=== PATIENT | female | born 1950 | race Caucasian/White ===

== ENCOUNTER → 2017-11-08 | Outpatient (CLI) | payer OTHER ==
--- NOTE | 2017-11-08 10:17 | XR ---
Cervical spine HISTORY: Neck pain 5 views of the cervical spine Carotid artery calcifications are suspected. Lateral extension of endplate disc complex causes forami nal encroachment on the right at C4-5, C5-6 and C6-7 on the left at same levels, views of the left fo ramina are limited however. Cervical vertebral bodies show preserved height. Minimal retrolisthesis g rade 1 C4-5 and C5-6. There is loss of disc height at the intervertebral levels at C3-4, C4-5, C5-6 a nd C6-7 with associated spondylosis. Prevertebral soft tissues are normal. Bone mineralization mildly reduced. Suspect facet arthropathy, patient is edentulous. IMPRESSION: Degenerative disc disease, multilevel foraminal encroachment, facet arthropathy. Addition al findings above.
--- NOTE | 2017-11-08 12:48 | BD ---
EXAMINATION TYPE: Axial Bone Density DATE OF EXAM: 11/08/2017 COMPARISON: NONE CLINICAL HISTORY: 66 YR OLD FEMALE....ICD-10 CODE: Z78.0 ASYMPTOMATIC MENOPAUSAL STATE Height: 63.4 Weight: 153 FRAX RISK QUESTIONS: Family History (Parent hip fracture): YES, HER MOTHER Current Tobacco Use: YES, ABOUT 1/2 PAC DAILY RISK FACTORS HISTORY OF: Surgery to RT HIP REPLACEMENT When: AT AGE 65 Family History of Osteoporosis: YES, HER MOTHER WITH BROKEN HIP Active: YES Diet low in dairy products/other sources of calcium: NO Postmenopausal woman: YES, HYST AT 26 YRS OLD, HORMONAL MENOPAUSE AT 46 YRS OLD MEDICATIONS: Additional Medications: LYRICA AND LUNESTA Additional History: HX OF COLON AND ENDOMETRIAL CANCER, TOTAL RT HIP EXAM MEASUREMENTS: Bone mineral densitometry was performed using the Cree System. Bone mineral density as measured about the Lumbar spine is: ----- L1-L4(G/cm2): 1.106 T Score Values are as follows: ----- L1: -0.3 ----- L2: -1.3 ----- L3: -0.4 ----- L4: -0.7 ----- L1-L4: -0.6 Bone mineral density FIRST BONE DENSITY AT MPH Bone mineral density about the L hip (g/cm2): 0.887 T Score values are as follows: -----L Neck: -1.1 -----L Total: -1.0 Bone mineral density FIRST BONE DENSITY SCAN AT MPH FRAX%S: THERE IS A 15.1% CHANCE OF A MAJOR OSTEOPOROTIC FX AND A 1.3% FOR A HIP FX.....PROBABILIT Y OF FX IN 10 YRS TIME IMPRESSION: Osteopenia NOTE: T-SCORE=SD OF THE YOUNG ADULT MEAN.
--- NOTE | 2017-11-09 09:52 | MM ---
Reason for exam: screening (asymptomatic). Last mammogram was performed 5 years and 9 months ago. History: Patient is postmenopausal, has history of endometrial cancer at age 25, and has history of colon cancer at age 25. Physical Findings: A clinical breast exam by your physician is recommended on an annual basis and results should be correlated with mammographic findings. MG Screening Mammo w CAD Bilateral CC and MLO view(s) were taken. Prior study comparison: February 11, 2012, bilateral digital screening mammo w/CAD. June 24, 2008, bilateral digital screening mammogram. The breast tissue is heterogeneously dense. This may lower the sensitivity of mammography. There is no discrete abnormality. No significant changes when compared with prior studies. ASSESSMENT: Negative, BI-RAD 1 RECOMMENDATION: Routine screening mammogram of both breasts in 1 year.
== END | disposition home or self-care (01) ==
LOC: RADMAMWWP 08:08
PROVIDERS: ATTEND Family Medicine
DX: Z12.31 Encounter for screening mammogram for malignant neoplasm of breast (principal); M50.30 Other cervical disc degeneration, unspecified cervical region; M43.12 Spondylolisthesis, cervical region; M47.812 Spondylosis without myelopathy or radiculopathy, cervical region; M46.92 Unspecified inflammatory spondylopathy, cervical region; M85.80 Other specified disorders of bone density and structure, unspecified site; Z78.0 Asymptomatic menopausal state
CPT/HCPCS: 72050; 77067; 77080

== ENCOUNTER 2018-03-29 15:50 | Emergency (ER) | payer OTHER, MEDICARE ==
[2018-03-29] MEDS ORDERED: SODIUM CHLORIDE 0.9% 1,000 ML IV STA (16:25)
--- NOTE | 2018-03-29 16:28 | ED ---
Abdominal Pain HPI - General Chief Complaint: Abdominal Pain Stated Complaint: Abd Pain Time Seen by Provider: 03/29/18 16:10 Source: patient, RN notes reviewed Mode of arrival: ambulatory Limitations: no limitations - History of Present Illness Initial Comments: 67-year-old female resents emergency department tingling or right lower quadrant abdominal pain. Patient states she's had diarrhea for last 2 days. Improved today states that she did have some nausea no vomiting. Patient reports no fever no chills no chest pain or shortness of breath no back pain. She states the bumps in the [place] makes symptoms worse and also when she walks. Patient states she is unsure she's had a prior appendectomy she does admit to prior cholecystectomy bowel resection and hysterectomy. - Related Data Home Medications Medication Instructions Recorded Confirmed Eszopiclone [Lunesta] 1 mg PO HS PRN 08/09/14 08/16/14 Pregabalin [Lyrica] 100 mg PO BID 08/09/14 08/16/14 Varenicline [Chantix Continuing 1 mg PO HS 08/12/14 08/16/14 Pack] Previous Rx's Medication Instructions Recorded HYDROcodone/APAP 7.5-325MG [[place] 1 - 2 each PO Q6HR PRN #90 tab 08/17/14 7.5-325] Warfarin [Coumadin] 2.5 mg PO DAILY #27 tab 08/17/14 Allergies Allergy/AdvReac Type Severity Reaction Status Date / Time No Known Allergies Allergy Verified 03/29/18 15:59 Review of Systems ROS Statement: Those systems with pertinent positive or pertinent negative responses have been documented in the HPI. ROS Other: All systems not noted in ROS Statement are negative. Past Medical History Past Medical History: Cancer, Fibromyalgia Additional Past Medical History / Comment(s): [id number]-HIAWBTE OF BOWEL History of Any Multi-Drug Resistant Organisms: None Reported Past Surgical History: Bowel Resection, Cholecystectomy, Hysterectomy, Joint Replacement, Orthopedic Surgery Additional Past Surgical History / Comment(s): right hip replacement, LEFT SHOULDER Past Anesthesia/Blood Transfusion Reactions: No Reported Reaction Past Psychological History: No Psychological Hx Reported Smoking Status: Current every day smoker Past Alcohol Use History: None Reported Past Drug Use History: None Reported - Past Family History Mother Family Medical History: Cancer Additional Family Medical History / Comment(s): mother- uterine CA Daughter(s) Family Medical History: Cancer General Exam Limitations: no limitations General appearance: alert, in no apparent distress Head exam: Present: atraumatic, normocephalic, normal inspection Respiratory exam: Present: normal lung sounds bilaterally. Absent: respiratory distress, wheezes, rales, rhonchi, stridor Cardiovascular Exam: Present: regular rate, normal rhythm, normal heart sounds. Absent: systolic murmur, diastolic murmur, rubs, gallop, clicks GI/Abdominal exam: Present: soft, tenderness (Moderate right lower quadrant), normal bowel sounds. Absent: distended, guarding, rebound, rigid Back exam: Absent: CVA tenderness (R), CVA tenderness (L) Skin exam: Present: warm, dry, intact, normal color. Absent: rash Course Vital Signs 03/29/18 15:57 Temperature 97.9 F Pulse Rate 71 Respiratory 18 Rate Blood Pressure 112/54 O2 Sat by Pulse 97 Oximetry Medical Decision Making - Medical Decision Making 67-year-old female presented for right lower quadrant abdominal pain. CT, lab urinalysis was obtained. There evidence of inflammation in the cecum, appendix concerning for inflammatory bowel disease versus acute appendicitis. Case discussed with Dr. Greenberg patient will be admitted kept nothing by mouth, antibiotics and repeat labs in the morning. - Lab Data Result diagrams: 03/29/18 16:45 03/29/18 16:45 Lab Results 03/29/18 03/29/18 03/29/18 Range/Units 16:45 16:45 16:45 WBC 10.5 (3.8-10.6) k/uL RBC 4.10 (3.80-5.40) m/uL Hgb 12.0 (11.4-16.0) gm/dL Hct 37.2 (34.0-46.0) % MCV 90.6 (80.0-100.0) fL MCH 29.1 (25.0-35.0) pg MCHC 32.2 (31.0-37.0) g/dL RDW 13.1 (11.5-15.5) % Plt Count 375 (150-450) k/uL Neutrophils % 67 % Lymphocytes % 23 % Monocytes % 5 % Eosinophils % 3 % Basophils % 0 % Neutrophils # 7.1 (1.3-7.7) k/uL Lymphocytes # 2.5 (1.0-4.8) k/uL Monocytes # 0.5 (0-1.0) k/uL Eosinophils # 0.3 (0-0.7) k/uL Basophils # 0.0 (0-0.2) k/uL PT (9.0-12.0) sec INR (<1.2) APTT (22.0-30.0) sec Sodium 141 (137-145) mmol/L Potassium 4.3 (3.5-5.1) mmol/L Chloride 109 H (98-107) mmol/L Carbon Dioxide 23 (22-30) mmol/L Anion Gap 9 mmol/L BUN 17 (7-17) mg/dL Creatinine 1.04 (0.52-1.04) mg/dL Est GFR (CKD-EPI)AfAm 65 (>60 ml/min/1.73 sqM) Est GFR (CKD-EPI)NonAf 56 (>60 ml/min/1.73 sqM) Glucose 81 (74-99) mg/dL Plasma Lactic Acid Louie 0.7 (0.7-2.0) mmol/L Calcium 9.8 (8.4-10.2) mg/dL Total Bilirubin 0.5 (0.2-1.3) mg/dL AST 31 (14-36) U/L ALT 25 (9-52) U/L Alkaline Phosphatase 60 (38-126) U/L Total Protein 7.1 (6.3-8.2) g/dL Albumin 4.2 (3.5-5.0) g/dL Amylase 45 (30-110) U/L Lipase 92 (23-300) U/L Urine Color Urine Appearance (Clear) Urine pH (5.0-8.0) Ur Specific [place] (1.001-1.035) Urine Protein (Negative) Urine Glucose (UA) (Negative) Urine Ketones (Negative) Urine Blood (Negative) Urine Nitrite (Negative) Urine Bilirubin (Negative) Urine Urobilinogen (<2.0) mg/dL Ur Leukocyte Esterase (Negative) 03/29/18 03/29/18 Range/Units 16:45 17:56 WBC (3.8-10.6) k/uL RBC (3.80-5.40) m/uL Hgb (11.4-16.0) gm/dL Hct (34.0-46.0) % MCV (80.0-100.0) fL MCH (25.0-35.0) pg MCHC (31.0-37.0) g/dL RDW (11.5-15.5) % Plt Count (150-450) k/uL Neutrophils % % Lymphocytes % % Monocytes % % Eosinophils % % Basophils % % Neutrophils # (1.3-7.7) k/uL Lymphocytes # (1.0-4.8) k/uL Monocytes # (0-1.0) k/uL Eosinophils # (0-0.7) k/uL Basophils # (0-0.2) k/uL PT 10.2 (9.0-12.0) sec INR 1.0 (<1.2) APTT 25.0 (22.0-30.0) sec Sodium (137-145) mmol/L Potassium (3.5-5.1) mmol/L Chloride (98-107) mmol/L Carbon Dioxide (22-30) mmol/L Anion Gap mmol/L BUN (7-17) mg/dL Creatinine (0.52-1.04) mg/dL Est GFR (CKD-EPI)AfAm (>60 ml/min/1.73 sqM) Est GFR (CKD-EPI)NonAf (>60 ml/min/1.73 sqM) Glucose (74-99) mg/dL Plasma Lactic Acid Louie (0.7-2.0) mmol/L Calcium (8.4-10.2) mg/dL Total Bilirubin (0.2-1.3) mg/dL AST (14-36) U/L ALT (9-52) U/L Alkaline Phosphatase (38-126) U/L Total Protein (6.3-8.2) g/dL Albumin (3.5-5.0) g/dL Amylase (30-110) U/L Lipase (23-300) U/L Urine Color Light Yellow Urine Appearance Clear (Clear) Urine pH 6.0 (5.0-8.0) Ur Specific [place] 1.004 (1.001-1.035) Urine Protein Negative (Negative) Urine Glucose (UA) Negative (Negative) Urine Ketones Trace H (Negative) Urine Blood Negative (Negative) Urine Nitrite Negative (Negative) Urine Bilirubin Negative (Negative) Urine Urobilinogen <2.0 (<2.0) mg/dL Ur Leukocyte Esterase Negative (Negative) Disposition Clinical Impression: Acute appendicitis, Inflammatory bowel disease Disposition: ADMITTED IP TO THIS HOSP Condition: Fair Referrals: Devonte Dalton MD [Primary Care Provider] - 1-2 days
[2018-03-29 17:08] LABS: Basophils % (A) 0 %; Eosinophils # (A) 0.3 k/uL (0-0.7); Eosinophils % (A) 3 %; HCT 37.2 % (34.0-46.0); Lymphocytes # (A) 2.5 k/uL (1.0-4.8); Lymphocytes % (A) 23 %; MCH 29.1 pg (25.0-35.0); MCHC 32.2 g/dL (31.0-37.0); MCV 90.6 fL (80.0-100.0); Mean Platelet Volume 7.4; Monocytes # (A) 0.5 k/uL (0-1.0); Monocytes % (A) 5 %; Neutrophils # (A) 7.1 k/uL (1.3-7.7); Neutrophils % (A) 67 %; Platelet Count 375 k/uL (150-450); RDW 13.1 % (11.5-15.5); WBC 10.5 k/uL (3.8-10.6)
[2018-03-29 17:12] LABS: Albumin 4.2 g/dL (3.5-5.0); Calcium 9.8 mg/dL (8.4-10.2); Potassium 4.3 mmol/L (3.5-5.1); Total Bilirubin 0.5 mg/dL (0.2-1.3); Total Protein 7.1 g/dL (6.3-8.2)
[2018-03-29 17:22] LABS: Prothrombin Time 10.2 sec (9.0-12.0)
[2018-03-29 18:21] LABS: Appearance,Urine Clear (Clear); Bilirubin,Urine Negative (Negative); Blood,Urine Negative (Negative); Color,Urine Light Yellow; Glucose,Urine (UA) Negative (Negative); Ketones,Urine Trace (Negative); Leukocyte Esterase,Urine Negative (Negative); Nitrite,Urine Negative (Negative); Protein,Urine Negative (Negative); Specific Gravity,Urine 1.004 (1.001-1.035); Urobilinogen,Urine <2.0 mg/dL (<2.0)
--- NOTE | 2018-03-29 18:45 | CT ---
EXAMINATION TYPE: CT abdomen pelvis w con DATE OF EXAM: 03/29/2018 COMPARISON: 12/24/2015 HISTORY: RLQ pain, nausea, diarrhea CT DLP: 675.4 mGycm Automated exposure control for dose reduction was used. TECHNIQUE: Helical acquisition of images was performed from the lung bases through the pelvis. CONTRAST: Performed without Oral Contrast and with IV Contrast, patient injected with 80 mL of Isovue 300. FINDINGS: There is subsegmental atelectasis at the posterior lung bases. There are clips from cholecystectomy. Heart size is normal. There is no pericardial effusion. There is no pleural effusion. There is hiatal hernia. Stomach otherwise appears normal. Liver spleen and pancreas appear normal. The bile ducts ar e not dilated. There is no adrenal mass. Kidneys have normal size. There is no hydronephrosis. There is 2 cm cortica l cyst lateral left kidney. There is normal contrast opacification of the kidneys. There is symmetric al renal excretion. Ureters are not dilated. There is no retroperitoneal adenopathy. Abdominal aorta is atheromatous. The lumbar vertebra have normal alignment. Disc spaces are fairly normal. The bony p yoshi is intact. There is no inguinal hernia. There is no evidence of a pelvic mass. There is right h ip prosthesis. Appendix measures 8 mm. There is very minimal fat stranding around the tip of the cecum. There is sli ght wall thickening of the distal ileum. There is probably wall thickening also of the cecum. IMPRESSION: THERE ARE ABNORMALITIES IN THE RIGHT LOWER QUADRANT INVOLVING THE TERMINAL ILEUM AND THE CECUM WEL L THE APPENDIX. I think this is more likely related to inflammatory bowel disease. Appendicitis i s not entirely excluded.
[2018-03-29] MEDS ORDERED: PIPERACILLIN-TAZOBACTAM 3.375 GM in DEXTROSE/WATER 1 50ML.BAG IVPB STA (19:03)
[2018-03-29] MEDS ORDERED: HYDROmorphone 1 MG/ML 1 ML SYRINGE IVP PRN (19:04)
[2018-03-29] MEDS ORDERED: NALOXONE 0.4 MG/ML 1 ML VIAL IV PRN (19:04)
[2018-03-29] MEDS ORDERED: ONDANSETRON 4 MG/2 ML VIAL IVP PRN (19:04)
[2018-03-29] MEDS ORDERED: MORPHINE SULFATE 4 MG/ML SYRINGE IV PRN (19:04)
[2018-03-29] MEDS ORDERED: SODIUM CHLORIDE 0.9% 1,000 ML IV SCH (19:15)
--- NOTE | 2018-03-29 19:19 | ED ---
Medical Decision Making - Medical Decision Making 67-year-old female presented for abdominal pain found to have acute appendicitis inflammatory bowel disease. Patient was admitted but states that she wants to sign out AGAINST MEDICAL ADVICE. I did explain in detail that she has a life-threatening disorder. Patient states that she'll come back if symptoms worsen. - Lab Data Result diagrams: 03/29/18 16:45 03/29/18 16:45 Lab Results 03/29/18 03/29/18 03/29/18 Range/Units 16:45 16:45 16:45 WBC 10.5 (3.8-10.6) k/uL RBC 4.10 (3.80-5.40) m/uL Hgb 12.0 (11.4-16.0) gm/dL Hct 37.2 (34.0-46.0) % MCV 90.6 (80.0-100.0) fL MCH 29.1 (25.0-35.0) pg MCHC 32.2 (31.0-37.0) g/dL RDW 13.1 (11.5-15.5) % Plt Count 375 (150-450) k/uL Neutrophils % 67 % Lymphocytes % 23 % Monocytes % 5 % Eosinophils % 3 % Basophils % 0 % Neutrophils # 7.1 (1.3-7.7) k/uL Lymphocytes # 2.5 (1.0-4.8) k/uL Monocytes # 0.5 (0-1.0) k/uL Eosinophils # 0.3 (0-0.7) k/uL Basophils # 0.0 (0-0.2) k/uL PT (9.0-12.0) sec INR (<1.2) APTT (22.0-30.0) sec Sodium 141 (137-145) mmol/L Potassium 4.3 (3.5-5.1) mmol/L Chloride 109 H (98-107) mmol/L Carbon Dioxide 23 (22-30) mmol/L Anion Gap 9 mmol/L BUN 17 (7-17) mg/dL Creatinine 1.04 (0.52-1.04) mg/dL Est GFR (CKD-EPI)AfAm 65 (>60 ml/min/1.73 sqM) Est GFR (CKD-EPI)NonAf 56 (>60 ml/min/1.73 sqM) Glucose 81 (74-99) mg/dL Plasma Lactic Acid Louie 0.7 (0.7-2.0) mmol/L Calcium 9.8 (8.4-10.2) mg/dL Total Bilirubin 0.5 (0.2-1.3) mg/dL AST 31 (14-36) U/L ALT 25 (9-52) U/L Alkaline Phosphatase 60 (38-126) U/L Total Protein 7.1 (6.3-8.2) g/dL Albumin 4.2 (3.5-5.0) g/dL Amylase 45 (30-110) U/L Lipase 92 (23-300) U/L Urine Color Urine Appearance (Clear) Urine pH (5.0-8.0) Ur Specific [place] (1.001-1.035) Urine Protein (Negative) Urine Glucose (UA) (Negative) Urine Ketones (Negative) Urine Blood (Negative) Urine Nitrite (Negative) Urine Bilirubin (Negative) Urine Urobilinogen (<2.0) mg/dL Ur Leukocyte Esterase (Negative) 03/29/18 03/29/18 Range/Units 16:45 17:56 WBC (3.8-10.6) k/uL RBC (3.80-5.40) m/uL Hgb (11.4-16.0) gm/dL Hct (34.0-46.0) % MCV (80.0-100.0) fL MCH (25.0-35.0) pg MCHC (31.0-37.0) g/dL RDW (11.5-15.5) % Plt Count (150-450) k/uL Neutrophils % % Lymphocytes % % Monocytes % % Eosinophils % % Basophils % % Neutrophils # (1.3-7.7) k/uL Lymphocytes # (1.0-4.8) k/uL Monocytes # (0-1.0) k/uL Eosinophils # (0-0.7) k/uL Basophils # (0-0.2) k/uL PT 10.2 (9.0-12.0) sec INR 1.0 (<1.2) APTT 25.0 (22.0-30.0) sec Sodium (137-145) mmol/L Potassium (3.5-5.1) mmol/L Chloride (98-107) mmol/L Carbon Dioxide (22-30) mmol/L Anion Gap mmol/L BUN (7-17) mg/dL Creatinine (0.52-1.04) mg/dL Est GFR (CKD-EPI)AfAm (>60 ml/min/1.73 sqM) Est GFR (CKD-EPI)NonAf (>60 ml/min/1.73 sqM) Glucose (74-99) mg/dL Plasma Lactic Acid Louie (0.7-2.0) mmol/L Calcium (8.4-10.2) mg/dL Total Bilirubin (0.2-1.3) mg/dL AST (14-36) U/L ALT (9-52) U/L Alkaline Phosphatase (38-126) U/L Total Protein (6.3-8.2) g/dL Albumin (3.5-5.0) g/dL Amylase (30-110) U/L Lipase (23-300) U/L Urine Color Light Yellow Urine Appearance Clear (Clear) Urine pH 6.0 (5.0-8.0) Ur Specific [place] 1.004 (1.001-1.035) Urine Protein Negative (Negative) Urine Glucose (UA) Negative (Negative) Urine Ketones Trace H (Negative) Urine Blood Negative (Negative) Urine Nitrite Negative (Negative) Urine Bilirubin Negative (Negative) Urine Urobilinogen <2.0 (<2.0) mg/dL Ur Leukocyte Esterase Negative (Negative) Disposition Clinical Impression: Acute appendicitis, Inflammatory bowel disease Disposition: Left Against Medical Advice Condition: Fair Additional Instructions: Return immediately to emergency department for any worsening, changes in symptoms or any other concerns. Prescriptions: Levofloxacin [Levaquin] 500 mg PO DAILY #7 tab metroNIDAZOLE [Flagyl] 500 mg PO TID #21 tab Referrals: Devonte Dalton MD [Primary Care Provider] - 1-2 days Tashi Greenberg MD [STAFF PHYSICIAN] - 1-2 days Time of Disposition: 19:19
[2018-03-29 19:29] VITALS: BP 157/75; PULSE 66; RESP 18; TEMP 98.1
[2018-03-30] MEDS ORDERED: PIPERACILLIN-TAZOBACTAM 3.375 GM in DEXTROSE/WATER 1 50ML.BAG IVPB SCH (04:00)
== END 2018-03-29 19:27 | disposition left against medical advice (07) ==
LOC: EC 15:50
DX: K35.80 Unspecified acute appendicitis (principal); K58.9 Irritable bowel syndrome, unspecified; M79.7 Fibromyalgia; F17.200 Nicotine dependence, unspecified, uncomplicated; Z85.42 Personal history of malignant neoplasm of other parts of uterus; Z90.49 Acquired absence of other specified parts of digestive tract; Z90.710 Acquired absence of both cervix and uterus; Z96.641 Presence of right artificial hip joint; Z98.890 Other specified postprocedural states; Z79.899 Other long term (current) drug therapy
CPT/HCPCS: 36415; 80053; 82150; 83605; 83690; 85025; 85610; 85730; 81003; 74177; 99284; 96360; 96361; Q9967

== ENCOUNTER 2018-03-30 06:55 | Observation (INO) | payer MEDICARE, OTHER ==
[2018-03-30] MEDS ORDERED: SODIUM CHLORIDE 0.9% 1,000 ML IV STA (06:59)
[2018-03-30] MEDS ORDERED: PIPERACILLIN-TAZOBACTAM 3.375 GM in DEXTROSE/WATER 1 50ML.BAG IVPB STA (07:00)
--- NOTE | 2018-03-30 07:02 | ED ---
Abdominal Pain HPI <Almas Franco - Last Filed: 03/30/18 07:21> - General Source: patient, RN notes reviewed Mode of arrival: ambulatory Limitations: no limitations <Teofilo Gutierrez - Last Filed: 03/30/18 07:50> - General Stated Complaint: ABD PAIN Time Seen by Provider: 03/30/18 06:59 - History of Present Illness Initial Comments: This is a 67-year-old female presents emergency Department chief complaint abdominal pain. Patient's pain started 3 days ago she was seen in emergency department last night was going to be admitted but patient signed out AGAINST MEDICAL ADVICE. Patient returns again this morning with worsening pain. Patient did have a 2 day history of diarrhea which resolved yesterday but continued to have right lower quadrant abdominal pain. Patient had CT which showed appendicitis/inflammatory bowel disease. Patient denies any current fever or chills. She has had some nausea. (Teofilo Gutierrez) - Related Data Home Medications Medication Instructions Recorded Confirmed Pregabalin [Lyrica] 100 mg PO TID 08/09/14 03/30/18 Albuterol Inhaler [Ventolin Hfa 1 - 2 puff INHALATION RT-Q6H PRN 03/29/18 Inhaler] Azithromycin [Zithromax Z-pack] See Taper PO DAILY 03/29/18 03/30/18 Eszopiclone [Lunesta] 3 mg PO HS PRN 03/29/18 03/30/18 Multivitamins, Thera [Multivitamin 1 tab PO DAILY 03/29/18 03/30/18 (formulary)] methylPREDNISolone Dose Pack See Taper PO DIRECTED 03/29/18 03/30/18 [Medrol Dose Pack] Previous Rx's Medication Instructions Recorded Levofloxacin [Levaquin] 500 mg PO DAILY #7 tab 03/29/18 metroNIDAZOLE [Flagyl] 500 mg PO TID #21 tab 03/29/18 Allergies Allergy/AdvReac Type Severity Reaction Status Date / Time No Known Allergies Allergy Verified 03/30/18 07:42 Review of Systems ROS Other: All systems not noted in ROS Statement are negative. <Almas Franco - Last Filed: 03/30/18 07:21> ROS Other: All systems not noted in ROS Statement are negative. <Teofilo Gutierrez - Last Filed: 03/30/18 07:50> ROS Statement: Those systems with pertinent positive or pertinent negative responses have been documented in the HPI. Past Medical History Past Medical History: Cancer, Fibromyalgia Additional Past Medical History / Comment(s): [id number]-BBCIOSU OF BOWEL History of Any Multi-Drug Resistant Organisms: None Reported Past Surgical History: Bowel Resection, Cholecystectomy, Hysterectomy, Joint Replacement, Orthopedic Surgery Additional Past Surgical History / Comment(s): right hip replacement, LEFT SHOULDER Past Anesthesia/Blood Transfusion Reactions: No Reported Reaction Past Psychological History: No Psychological Hx Reported Smoking Status: Current every day smoker Past Alcohol Use History: None Reported Past Drug Use History: None Reported - Past Family History Mother Family Medical History: Cancer Additional Family Medical History / Comment(s): mother- uterine CA Daughter(s) Family Medical History: Cancer <Teofilo Gutierrez - Last Filed: 03/30/18 07:50> General Exam General appearance: alert, in no apparent distress Head exam: Present: atraumatic, normocephalic, normal inspection Respiratory exam: Present: normal lung sounds bilaterally. Absent: respiratory distress, wheezes, rales, rhonchi, stridor Cardiovascular Exam: Present: regular rate, normal rhythm, normal heart sounds. Absent: systolic murmur, diastolic murmur, rubs, gallop, clicks GI/Abdominal exam: Present: soft, tenderness (Moderate right lower quadrant tenderness), normal bowel sounds. Absent: distended, guarding, rebound, rigid Back exam: Absent: CVA tenderness (R), CVA tenderness (L) Skin exam: Present: warm, dry, intact, normal color. Absent: rash <Teofilo Gutierrez - Last Filed: 03/30/18 07:50> Vital Signs 03/30/18 06:58 Temperature 98.3 F Pulse Rate 72 Respiratory 20 Rate Blood Pressure 138/70 O2 Sat by Pulse 97 Oximetry Medical Decision Making <Almas Franco - Last Filed: 03/30/18 07:21> <Teofilo Gutierrez - Last Filed: 03/30/18 07:50> - Medical Decision Making Patient reevaluated by myself, Dr. Franco. Patient resting comfortably in bed. Patient states she has had symptoms for 3 or 4 days. Patient has had nausea and decreased appetite. Patient did have some diarrhea however that has resolved. Abdomen is soft with moderate tenderness right lower quadrant. CT report reviewed. Patient and family updated on results and plan. Case again discussed with Dr. Greenberg, who will admit. He does request antibiotics. Patient does not meet sepsis criteria at this time. (Almas Franco) Disposition <Almas Franco - Last Filed: 03/30/18 07:21> <Teofilo Gutierrez - Last Filed: 03/30/18 07:50> Clinical Impression: Acute appendicitis, Inflammatory bowel disease Disposition: ADMITTED IP TO THIS HOSP Condition: Fair Referrals: Devonte Dalton MD [Primary Care Provider] - 1-2 days
[2018-03-30] MEDS ORDERED: NALOXONE 0.4 MG/ML 1 ML VIAL IV PRN (07:49)
[2018-03-30 08:08] LABS: Albumin 4.1 g/dL (3.5-5.0); Calcium 9.5 mg/dL (8.4-10.2); Potassium 4.6 mmol/L (3.5-5.1); Total Bilirubin 0.7 mg/dL (0.2-1.3)
[2018-03-30 08:10] LABS: Appearance,Urine Clear (Clear); Bilirubin,Urine Negative (Negative); Blood,Urine Trace (Negative); Color,Urine Yellow; Glucose,Urine (UA) Negative (Negative); Ketones,Urine 1+ (Negative); Leukocyte Esterase,Urine Negative (Negative); Mucus,Urine Rare /hpf; Nitrite,Urine Negative (Negative); PH, Urine 5.5 (5.0-8.0); Protein,Urine Negative (Negative); RBC,Urine <1 /hpf (0-5); Specific Gravity,Urine 1.015 (1.001-1.035); Squamous Epithelial Cell,Urine <1 /hpf (0-4); Urobilinogen,Urine <2.0 mg/dL (<2.0); WBC,Urine 1 /hpf (0-5)
[2018-03-30 08:13] LABS: Basophils # (A) 0.1 k/uL (0-0.2); Basophils % (A) 1 %; Eosinophils # (A) 0.1 k/uL (0-0.7); Eosinophils % (A) 1 %; HCT 37.5 % (34.0-46.0); HGB 12.2 gm/dL (11.4-16.0); Lymphocytes # (A) 1.6 k/uL (1.0-4.8); Lymphocytes % (A) 16 %; MCH 29.6 pg (25.0-35.0); MCHC 32.7 g/dL (31.0-37.0); MCV 90.5 fL (80.0-100.0); Mean Platelet Volume 7.3; Monocytes # (A) 0.6 k/uL (0-1.0); Monocytes % (A) 6 %; Neutrophils # (A) 7.5 k/uL (1.3-7.7); Neutrophils % (A) 75 %; Platelet Count 346 k/uL (150-450); RBC 4.14 m/uL (3.80-5.40)
[2018-03-30] MEDS: SODIUM CHLORIDE 0.9% 1,000 ML IV SCH ×2 (08:43→15:15)
[2018-03-30] MEDS ORDERED: SODIUM CHLORIDE 0.9% 1,000 ML IV ONE (09:03)
[2018-03-30] MEDS: PANTOPRAZOLE 40 MG/10 ML VIAL IVP SCH ×2 (09:16→19:57)
[2018-03-30] MEDS: HYDROmorphone 1 MG/ML 1 ML SYRINGE IVP PRN ×2 (09:16→13:59)
[2018-03-30] MEDS: ONDANSETRON 4 MG/2 ML VIAL IVP PRN ×3 (09:16→18:15)
[2018-03-30] MEDS ORDERED: PEG 3350-NA SULF,BICARB,CL/KCL 4,000 ML BOTTLE PO ONE (09:21)
[2018-03-30] MEDS ORDERED: ALBUTEROL NEBULIZED 2.5 MG/3 ML INHALATION PRN (10:28)
[2018-03-30] MEDS ORDERED: TEMAZEPAM 15 MG CAP PO PRN (10:28)
--- NOTE | 2018-03-30 10:34 | P.GSHP ---
History of Present Illness H&P Date: 03/30/18 67-year-old female presented to the emergency room with a chief complaint of developing right lower quadrant abdominal pain 3 day duration patient stated the pain became more intense and with any movement it aggravated the pain. Patient stated that with the episode she had frequent loose stools that they have resolved. Patient points to the right lower quadrant of the abdomen where the abdominal pain is. Patient states she's not had prior episodes. Patient states that she was seen in the emergency room on the but needed to leave AGAINST MEDICAL ADVICE returned in the morning because the pain was worse. Patient stated with any movement moving the leg standing riding in the car caused significant right lower quadrant abdominal pain positive tenderness to the right lower quadrant guarding states with movement causes waves of nausea with increased right lower quadrant abdominal pain CAT scan of the abdomen and pelvis obtained on March 29 reviewing the report appendix measures 8mm. Slight wall thickening of the distal ileum. Abnormal findings in the right lower quadrant involving the terminal ileum and the cecum as well as the appendix could be related to inflammatory bowel disease can decide is not entirely excluded. Patient continues to report with any movement aggravates the pain in the right lower quadrant White count on admission 10 afebrile Patient stated that she did have a colonoscopy before 5 years ago. Past surgical history cholecystectomy, bowel resection, hysterectomy, orthopedic surgeries Current image day smoker Past medical history fibronyalia - Review of Systems Comment: Essentially unremarkable except as mentioned in the present illness Past Medical History Past Medical History: Cancer, Fibromyalgia Additional Past Medical History / Comment(s): [id number] OF BOWEL History of Any Multi-Drug Resistant Organisms: None Reported Past Surgical History: Bowel Resection, Cholecystectomy, Hysterectomy, Joint Replacement, Orthopedic Surgery Additional Past Surgical History / Comment(s): right hip replacement, LEFT SHOULDER Past Anesthesia/Blood Transfusion Reactions: No Reported Reaction Past Psychological History: No Psychological Hx Reported Smoking Status: Current every day smoker Past Alcohol Use History: None Reported Past Drug Use History: None Reported - Past Family History Mother Family Medical History: Cancer Additional Family Medical History / Comment(s): mother- uterine CA Daughter(s) Family Medical History: Cancer Medications and Allergies Home Medications Medication Instructions Recorded Confirmed Type Pregabalin [Lyrica] 100 mg PO TID 08/09/14 03/30/18 History Albuterol Inhaler [Ventolin Hfa 1 - 2 puff INHALATION RT-Q6H PRN 03/29/18 History Inhaler] Azithromycin [Zithromax Z-pack] See Taper PO DAILY 03/29/18 03/30/18 History Eszopiclone [Lunesta] 3 mg PO HS PRN 03/29/18 03/30/18 History Levofloxacin [Levaquin] 500 mg PO DAILY #7 tab 03/29/18 03/30/18 Rx Multivitamins, Thera [Multivitamin 1 tab PO DAILY 03/29/18 03/30/18 History (formulary)] methylPREDNISolone Dose Pack See Taper PO DIRECTED 03/29/18 03/30/18 History [Medrol Dose Pack] metroNIDAZOLE [Flagyl] 500 mg PO TID #21 tab 03/29/18 03/30/18 Rx Allergies Allergy/AdvReac Type Severity Reaction Status Date / Time No Known Allergies Allergy Verified 03/30/18 09:02 Surgical - Exam Vital Signs Temp Pulse Resp BP Pulse Ox 98.3 F 72 20 138/70 97 03/30/18 06:58 03/30/18 06:58 03/30/18 06:58 03/30/18 06:58 03/30/18 06:58 GENERAL APPEARANCE: 67 year old female patient is alert, oriented, in no acute distress. States just received pain medication does reduce the pain. VITAL SIGNS: Reviewed HEENT: Head is normocephalic and atraumatic. Pupils are equal and reactive. The nares are patent. Oropharynx is clear without lesions. NECK: Supple without lymphadenopathy. Traches midline. HEART: S1, S2. Regular rate and rhythm. Denying chest pain no murmur LUNGS: No crackles or wheezes are heard. Good air movement bilaterally on room air ABDOMEN: Soft, diffuse tenderness right lower quadrant nonradiating nausea sensation dry heaves poor oral intake states feels nauseated no appetite no stooling, nondistended with few bowel sounds. No peritoneal signs. No palpable organomegaly or masses. EXTREMITIES: Normal skin color and turgor. No cyanosis, rash, ulceration, clubbing or edema. Radial pedal pulses are 2/4 bilaterally. NEUROLOGICAL: No focal deficits. Strength and sensation are grossly intact. Results - Labs 03/30/18 07:33 03/30/18 07:33 Abnormal Lab Results - Last 24 Hours (Table) 03/30/18 03/30/18 Range/Units 07:33 07:50 Chloride 113 H (98-107) mmol/L Urine Ketones 1+ H (Negative) Urine Blood Trace H (Negative) Urine Mucus Rare H (None) /hpf Diabetes panel 03/30/18 Range/Units 07:33 Sodium 143 (137-145) mmol/L Potassium 4.6 (3.5-5.1) mmol/L Chloride 113 H (98-107) mmol/L Carbon Dioxide 22 (22-30) mmol/L BUN 16 (7-17) mg/dL Creatinine 1.04 (0.52-1.04) mg/dL Glucose 76 (74-99) mg/dL Calcium 9.5 (8.4-10.2) mg/dL AST 30 (14-36) U/L ALT 28 (9-52) U/L Alkaline Phosphatase 57 (38-126) U/L Total Protein 7.0 (6.3-8.2) g/dL Albumin 4.1 (3.5-5.0) g/dL Calcium panel 03/30/18 Range/Units 07:33 Calcium 9.5 (8.4-10.2) mg/dL Albumin 4.1 (3.5-5.0) g/dL Pituitary panel 03/30/18 Range/Units 07:33 Sodium 143 (137-145) mmol/L Potassium 4.6 (3.5-5.1) mmol/L Chloride 113 H (98-107) mmol/L Carbon Dioxide 22 (22-30) mmol/L BUN 16 (7-17) mg/dL Creatinine 1.04 (0.52-1.04) mg/dL Glucose 76 (74-99) mg/dL Calcium 9.5 (8.4-10.2) mg/dL Adrenal panel 03/30/18 Range/Units 07:33 Sodium 143 (137-145) mmol/L Potassium 4.6 (3.5-5.1) mmol/L Chloride 113 H (98-107) mmol/L Carbon Dioxide 22 (22-30) mmol/L BUN 16 (7-17) mg/dL Creatinine 1.04 (0.52-1.04) mg/dL Glucose 76 (74-99) mg/dL Calcium 9.5 (8.4-10.2) mg/dL Total Bilirubin 0.7 (0.2-1.3) mg/dL AST 30 (14-36) U/L ALT 28 (9-52) U/L Alkaline Phosphatase 57 (38-126) U/L Total Protein 7.0 (6.3-8.2) g/dL Albumin 4.1 (3.5-5.0) g/dL Assessment and Plan Assessment: Impression Present on admission right lower quadrant pain with nausea sensation possibly due to acute appendicitis, inflammatory bowel disease not ruled out CAT scan abdomen and pelvis with contrast done on March 29 reviewing the report show appendix measures 8 mm abnormalities involving the right lower quadrant at the terminal ileum and cecum as well as the appendix inflammatory bowel disease not ruled out appendicitis not entirely ruled out Present on admission frequent stooling diarrhea unclear etiology Plan IV fluid for hydration Anti-emetics as ordered IV Zosyn as ordered Colonoscopy to be scheduled tomorrow we'll start bowel prep today Pain control Home meds as appropriate Further surgical recommendations pending medical course Repeat labs in the morning DVT and GI prophylaxis The above impression and plan of care have been discussed and directed by signing physician. Anusha Mcmillan nurse practitioner acting as scribe for signing physician.
[2018-03-30] MEDS: PREGABALIN 100 MG CAP PO SCH ×2 (15:14→21:59)
[2018-03-31] MEDS: SODIUM CHLORIDE 0.9% 1,000 ML IV SCH ×3 (04:24→17:38)
[2018-03-31] MEDS: HYDROmorphone 1 MG/ML 1 ML SYRINGE IVP PRN (06:00)
[2018-03-31] MEDS: PREGABALIN 100 MG CAP PO SCH ×2 (08:20→16:02)
[2018-03-31] MEDS: PANTOPRAZOLE 40 MG/10 ML VIAL IVP SCH (08:22)
[2018-03-31 08:36] VITALS: RESP 16
[2018-03-31 08:59] LABS: Basophils # (A) 0.1 k/uL (0-0.2); Basophils % (A) 1 %; Eosinophils # (A) 0.1 k/uL (0-0.7); Eosinophils % (A) 1 %; HCT 34.8 % (34.0-46.0); HGB 11.3 gm/dL (11.4-16.0); Lymphocytes # (A) 1.6 k/uL (1.0-4.8); Lymphocytes % (A) 21 %; MCH 29.9 pg (25.0-35.0); MCHC 32.6 g/dL (31.0-37.0); MCV 91.8 fL (80.0-100.0); Mean Platelet Volume 7.1; Monocytes # (A) 0.3 k/uL (0-1.0); Monocytes % (A) 4 %; Neutrophils # (A) 5.4 k/uL (1.3-7.7); Neutrophils % (A) 71 %; Platelet Count 332 k/uL (150-450); RBC 3.79 m/uL (3.80-5.40); RDW 12.9 % (11.5-15.5); WBC 7.6 k/uL (3.8-10.6)
[2018-03-31 09:13] LABS: Albumin 3.4 g/dL (3.5-5.0); Calcium 8.9 mg/dL (8.4-10.2); Potassium 4.3 mmol/L (3.5-5.1); Total Bilirubin 0.3 mg/dL (0.2-1.3); Total Protein 5.9 g/dL (6.3-8.2)
[2018-03-31 09:49] LABS: Glucose,Whole Blood 55 mg/dL (75-99)
[2018-03-31 10:16] LABS: Glucose,Whole Blood 76 mg/dL (75-99)
[2018-03-31] MEDS: ONDANSETRON 4 MG/2 ML VIAL IVP PRN (13:32)
[2018-03-31] MEDS ORDERED: PROPOFOL 10 MG/ML 20 ML VIAL IV ONE (13:57)
[2018-03-31] MEDS ORDERED: LACTATED RINGERS 1,000 ML IV ONE ×2 (14:09)
--- NOTE | 2018-03-31 14:25 | P.OP ---
Date of Procedure: 03/31/18 Preoperative Diagnosis: Colitis Postoperative Diagnosis: Mild diverticulosis Cecal biopsy pathology pending Procedure(s) Performed: Colonoscopy Anesthesia: MAC Surgeon: Tashi Greenberg Pathology: other (Cecum) Condition: stable Disposition: PACU Description of Procedure: The patient's placed on the endoscopy table lateral position. She received IV sedation. Digital rectal exam was performed which revealed no abnormalities. The flexible colonoscope was then placed patient anus and passed throughout the entire colon. The colon was very redundant. The ileocecal valve sutures. The cecum appeared normal. Due to her CAT scan findings of possible inflammation and a biopsies performed. The scope was withdrawn. The remainder the ascending colon transverse colon appeared normal. In the descending and; was mild diverticular changes. Scope was then brought back the rectum and this appeared normal. Scope withdrawn for patient.
[2018-03-31 17:55] VITALS: BP 154/75; PULSE 55; TEMP 97.7
--- NOTE | 2018-04-07 10:17 | P.DS ---
Providers Date of admission: 03/30/18 07:52 Expected date of discharge: 03/31/18 Attending physician: Tashi Greenberg Primary care physician: Devonte Dalton Hospital Course: This is a 67-year-old female who was admitted to the hospital with complaints of abdominal pain. Patient underwent colonoscopy tonight for possible colitis. Patient did well during her stay. Please see chart for details. Procedures: Colonoscopy Patient Condition at Discharge: Fair Plan - Discharge Summary Discharge Rx Participant: No New Discharge Prescriptions: No Action Pregabalin [Lyrica] 100 mg PO TID Azithromycin [Zithromax Z-pack] See Taper PO DAILY Albuterol Inhaler [Ventolin Hfa Inhaler] 1 - 2 puff INHALATION RT-Q6H PRN PRN Reason: Shortness Of Breath methylPREDNISolone Dose Pack [Medrol Dose Pack] See Taper PO DIRECTED Multivitamins, Thera [Multivitamin (formulary)] 1 tab PO DAILY Eszopiclone [Lunesta] 3 mg PO HS PRN PRN Reason: Insomnia Levofloxacin [Levaquin] 500 mg PO DAILY #7 tab metroNIDAZOLE [Flagyl] 500 mg PO TID #21 tab Discharge Medication List Pregabalin [Lyrica] 100 mg PO TID 08/09/14 [History] Albuterol Inhaler [Ventolin Hfa Inhaler] 1 - 2 puff INHALATION RT-Q6H PRN [History] Azithromycin [Zithromax Z-pack] See Taper PO DAILY 03/29/18 [History] Eszopiclone [Lunesta] 3 mg PO HS PRN 03/29/18 [History] Levofloxacin [Levaquin] 500 mg PO DAILY #7 tab 03/29/18 [Rx] Multivitamins, Thera [Multivitamin (formulary)] 1 tab PO DAILY 03/29/18 [History ] methylPREDNISolone Dose Pack [Medrol Dose Pack] See Taper PO DIRECTED [History] metroNIDAZOLE [Flagyl] 500 mg PO TID #21 tab 03/29/18 [Rx] Follow up Appointment(s)/Referral(s): Devonte Dalton MD [Primary Care Provider] - 1-2 days Tashi Greenberg MD [STAFF PHYSICIAN] - 1 Week (Office closed when trying to make appointment for early next week) Patient Instructions/Handouts: Diverticulosis (DC) Activity/Diet/Wound Care/Special Instructions: Continue regular diet as tolerated. Fluids are always encouraged. Follow up with Dr. Greenberg early next week in the office. Call physician with any questions comments concerns worsening returning symptoms, fever 101.1 or higher , pain that is not controlled by tylenol and or motrin, not tolerating diet, or unable to tolerating fluids
== END 2018-03-31 19:08 ==
LOC: EC 06:55 → 6PED 07:52
PROVIDERS: ADMIT Surgery; ATTEND Surgery
DX: R10.31 Right lower quadrant pain (principal); R11.0 Nausea; R19.7 Diarrhea, unspecified; K57.90 Diverticulosis of intestine, part unspecified, without perforation or abscess without bleeding; J44.9 Chronic obstructive pulmonary disease, unspecified; M79.7 Fibromyalgia; F17.200 Nicotine dependence, unspecified, uncomplicated; Z79.899 Other long term (current) drug therapy; Z90.49 Acquired absence of other specified parts of digestive tract; Z98.0 Intestinal bypass and anastomosis status; Z85.42 Personal history of malignant neoplasm of other parts of uterus; Z85.038 Personal history of other malignant neoplasm of large intestine; Z80.49 Family history of malignant neoplasm of other genital organs
CPT/HCPCS: 96365 ×2; 96366; 96375; 96376 ×2; 99284; 36415; 88305; 80053 ×2; 82150; 83605; 83690; 85025 ×2; 81001; 87040; 45380; G0378 ×2; J2405 ×2; J1170 ×2; J2543; J2704; C9113 ×2

== ENCOUNTER → 2020-03-21 | Outpatient (CLI) | payer BC ==
--- NOTE | 2020-03-21 09:43 | MR ---
EXAMINATION TYPE: MR lumbar spine wo con DATE OF EXAM: 03/21/2020 COMPARISON: CT abdomen and pelvis March 29, 2018 HISTORY: Low Back Pain, Radiculopathy, Spondylosis all per order. Pain into right leg for months per patient. TECHNIQUE: Multiplanar, multisequence imaging of the lumbar spine is performed without IV contrast. FINDINGS: Sagittal images of the lumbar spine show vertebral body heights and alignment to remain sat isfactory. There is multilevel disc desiccation but the disc space heights are fairly well maintained . The conus medullaris is normal in position and signal ending L1-L2 disc space level. The bone mar row signal intensity is overall heterogeneous. Mild multilevel anterior spurring redemonstrated. Axial images show T12-L1 and L1-L2 levels to appear within normal limits. Axial images at the L2-L3 levels mild/moderate broad-based posterior disc protrusion effacing the ant erior thecal sac and causing mild bilateral anterior inferior neural foraminal narrowing. Axial images at the L3-L4 level show mild mild broad disc bulge mildly effacing the anterior thecal s ac and causing mild left greater than right bilateral anterior inferior neural foraminal narrowing. Axial images at L4-L5 level show mild to moderate facet arthropathy and ligament flavum hypertrophy e ffacing posterior lateral thecal sac. There is mild to moderate broad disc bulge with broad-based rig ht paracentral disc protrusion effacing the anterolateral thecal sac and causing mild to moderate lef t and moderate right-sided neural foraminal narrowing. There appears to be encroachment on exiting ri ght L4 nerve seen best sagittal image 12 and axial image 8. Axial images at L5-S1 level show mild/moderate left greater than right facet arthropathy. There is ti ny central disc protrusion. Bilateral neural foramina are patent. Anterior spinal canal minimally eff aced. Partial visualization of T2 hyperintense lesion laterally left kidney axial image 28 upper pole level favoring thin-walled cyst. Paraspinal muscle bulk preserved. IMPRESSION: Multilevel degenerative changes lumbar spine as detailed above. Attention to the L4-L5 le ajit where encroachment on exiting right L4 nerve is felt present.
== END | disposition home or self-care (01) ==
LOC: RADMRIMAIN 07:57
PROVIDERS: ATTEND Physical Medicine & Rehabilitation
DX: M47.26 Other spondylosis with radiculopathy, lumbar region (principal); M47.817 Spondylosis without myelopathy or radiculopathy, lumbosacral region
CPT/HCPCS: 72148

== ENCOUNTER → 2020-08-28 | Outpatient (CLI) | payer BC, MEDICARE ==
--- NOTE | 2020-08-28 12:11 | XR ---
EXAMINATION TYPE: XR chest 2V DATE OF EXAM: 08/28/2020 COMPARISON: 12/24/2015 HISTORY: Shortness of breath TECHNIQUE: Frontal and lateral views of the chest are obtained. FINDINGS: Scattered senescent parenchymal changes noted. Hyperinflation compatible with COPD. No evidence for infiltrate. No evidence for atelectasis. Heart size is stable. Mediastinal structures are stable and grossly unremarkable. No evidence for hilar prominence. Degenerative changes dorsal spine. IMPRESSION: 1. No evidence for acute pulmonary disease.
== END | disposition home or self-care (01) ==
LOC: RADXRMAIN 08:32
PROVIDERS: ATTEND Family Medicine
DX: R06.02 Shortness of breath (principal)
CPT/HCPCS: 71046

== ENCOUNTER → 2021-08-03 | Outpatient (CLI) | payer BC ==
--- NOTE | 2021-08-03 08:47 | CT ---
EXAMINATION TYPE: CT lumbar spine wo con DATE OF EXAM: 08/03/2021 7:43 AM COMPARISON: MRI dated 03/21/2020 HISTORY: Low back pain and leg numbness CT DLP: 501.0 mGycm Automated exposure control for dose reduction was used. TECHNIQUE: Unenhanced CT of the lumbar spine was performed. Bone and soft tissue window settings are submitted as well as coronal and sagittal reconstructions. FINDINGS: Osteopenia. Exaggerated lumbar lordosis. Minimal retrolisthesis of L2 over L3. No definite vertebral body collapse or acute displaced fracture. Degenerative changes of the lumbar spine with multilevel o pposing endplate osteophytosis, degenerated L2-3 disc and multilevel facet osteoarthropathy, most boyd dent at left L5-S1 facet. At L1-2 level: Bilateral posterior foraminal disc protrusions, causing no significant central spinal canal stenosis or significant neuroforaminal stenosis. At L2-3 level: Posterior osteophytosis with diffuse posterior disc bulge and focal left extraforamina l disc protrusion, causing mild central spinal canal stenosis (likely insignificant) and mild left ne uroforaminal stenosis. Suspected indentation of the left L2 nerve root in extraforaminal location. At L3-4 level: Diffuse posterior disc bulge with small left foraminal and extraforaminal protrusion, associated with slightly prominent posterior epidural fat, causing mild central spinal canal stenosis and mild left neuroforaminal stenosis. Suspected indentation on the left L3 nerve root in extraforam inal location. At L4-5 level: Diffuse posterior disc bulge more inclined to the right side with suspected right fora art protrusion, associated with left ligamentum flavum hypertrophy. Nonvisualized right ligamentum flavum probably previously surgically resected with suspected overlying partial resection of the infe rior aspect of the right lamina. No significant spinal canal stenosis at that level however there is severe right and mild left neuroforaminal stenosis compressing the corresponding L4 nerve root more o n the right side. Questionable indentation of the right L5 nerve root in its lateral recess. At L5-S1 level: Diffuse posterior disc bulge slightly more inclined to the right side with bilateral facet osteoarthropathy, more on the left side, causing no significant central spinal canal stenosis a nd severe bilateral neuroforaminal stenosis compressing the corresponding L5 nerve root more on the r ight side. Scattered tiny right basal pulmonary nodules measuring up to 2 mm, possibly representing granulomas. Further elective CT chest assessment can be considered. Left upper pole renal cyst, not completely in cluded in the scan. Prominent right ureter, distal ureteric stone can't be excluded. Double IVC. Dara rial atherosclerotic calcifications. Mild degenerative changes of the sacroiliac joints. No paraspina l lesion. IMPRESSION: Degenerative changes of the lumbar spine with multilevel DDD, neuroforaminal stenosis and nerve root compression as detailed above. Recommend clinical correlation and correlation with reports or previou s surgical intervention. Other incidental findings as detailed above.
== END | disposition home or self-care (01) ==
LOC: RADCTMAIN 07:22
PROVIDERS: ATTEND Physical Medicine & Rehabilitation
DX: M47.26 Other spondylosis with radiculopathy, lumbar region (principal); M51.16 Intervertebral disc disorders with radiculopathy, lumbar region; M99.73 Connective tissue and disc stenosis of intervertebral foramina of lumbar region
CPT/HCPCS: 72131